=== PATIENT | female | born 1990 | race Caucasian/White ===

== ENCOUNTER 2016-09-13 20:56 | Emergency (ER) | payer MEDICAID, OTHER ==
[~2016-09-13 20:56] MED LIST: BACT2OIN TOP; DIPH2%T PO; PRED20 PO; ZOVI800T13 PO
[2016-09-13 21:04] VITALS: BP 135/87; PULSE 109; RESP 18; TEMP 98.8; O2SAT 95
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
[2016-09-13 23:02] LABS: BASOPHIL # 0.1 TH/MM3 (0-0.2); BASOPHIL % 0.4 % (0.0-2.0); EOSINOPHIL # 0.2 TH/MM3 (0-0.4); EOSINOPHIL % 1.6 % (0.0-4.0); HEMATOCRIT 42.8 % (35.0-46.0); HEMO FLAGS DIFF FINAL; LYMPH % 30.8 % (9.0-44.0); LYMPHOCYTE # 3.6 TH/MM3 (1.0-4.8); MEAN CELL VOLUME 97.4 FL (80.0-100.0); MEAN CORPUSCULAR HEMOGLOBIN 33.2 PG (27.0-34.0); MEAN CORPUSCULAR HGB CONC 34.1 % (32.0-36.0); MONO % 7.9 % (0.0-8.0); NEUT % 59.3 % (16.0-70.0); PLATELET COUNT 337 TH/MM3 (150-450); RED CELL DISTRIBUTION WIDTH 13.6 % (11.6-17.2); WHITE BLOOD COUNT 11.8 TH/MM3 (4.0-11.0)
[2016-09-13 23:17] LABS: ALT (GPT) 22 U/L (10-53); ANION GAP 12 MEQ/L (5-15); AST (GOT) 16 U/L (15-37); BICARBONATE 20.8 MEQ/L (21.0-32.0); BLOOD UREA NITROGEN 6 MG/DL (7-18); CHLORIDE 113 MEQ/L (98-107); GLOMERULAR FILTRATION RATE 91 ML/MIN (>89); POTASSIUM 3.5 MEQ/L (3.5-5.1); SODIUM (NA) 146 MEQ/L (136-145)
[2016-09-13 23:21] LABS: ACETAMINOPHEN LESS THAN 2.0 MCG/ML (10.0-30.0); ALKALINE PHOSPHATASE 80 U/L (45-117); BETA HCG QUANT LESS THAN 1 MIU/ML (0-5); TOTAL BILIRUBIN ADULT 0.3 MG/DL (0.2-1.0)
[2016-09-14 01:31] VITALS: BP 122/79; PULSE 105; RESP 18; TEMP 97.9; O2SAT 98
[2016-09-14 06:07] VITALS: BP 102/54; PULSE 87; RESP 16
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
[2016-09-14] MEDS ORDERED: VIST50CA PO (12:00)
== END 2016-09-14 12:40 | disposition home or self-care (01) ==
LOC: NEPD 20:56 → NEPJ 09-14 12:40
DX: F10.129 Alcohol abuse with intoxication, unspecified (principal); S61.511A Laceration without foreign body of right wrist, initial encounter; F43.22 Adjustment disorder with anxiety; F41.9 Anxiety disorder, unspecified; X78.9XXA Intentional self-harm by unspecified sharp object, initial encounter; Z72.0 Tobacco use
CPT/HCPCS: 12005; 80053; 80307; 84702; 85025